=== PATIENT | male | born 1990 | race Caucasian/White ===

== ENCOUNTER 2016-09-19 21:40 | Emergency (ER) | payer OTHER ==
[~2016-09-19 21:40] MED LIST: PERCOCET1 TA1 PO
--- NOTE | 2016-09-19 23:33 | ED ORDER SUMMARY ---
..... Patient: LIZ VERA OrderSheet [facility] VisitID: [id number] [place] [address] 26y, M Registration Date/Time: 09/19/2016 ORDER SHEET Weight: 102.0 kg (stated) Allergies: No Known Drug Allergy GENERAL ORDERS: CBC w Diff Urgent (21:54 09/19/2016 Diane BARRON) (Ack 21:56 Marlen) (22:12 JSanders R.N.) CMP Urgent (21:54 09/19/2016 Diane BARRON) (Ack 21:56 Marlen) (22:12 JSanders R.N.) UA-Culture if indicated Urgent (:54 09/19/2016 Diane BARRON) (Ack 21:56 Marlen) (23:05 JSanders R.N.) Amylase Urgent (21:54 09/19/2016 Diane BARRON) (Ack 21:56 Marlen) (22:12 JSanders R.N.) Lipase Urgent (21:54 09/19/2016 Diane BARRON) (Ack 21:56 Marlen) (22:12 JSanders R.N.) Urine Drug Screen Urgent (21:54 09/19/2016 Diane BARRON) (Ack 21:56 Marlen) (23:05 JSanders R.N.) Ethyl Alcohol Urgent (21:54 09/19/2016 Diane BARRON) (Ack 21:56 Marlen) (22:12 JSanders R.N.) MEDICATION ORDERS: IV FLUIDS: IV NS with Normal Saline 1 Liter, Folic Acid 1 mg/L, Multivitamin Concentrate Intravenous 1 amp/L, Thiamine HCl 100 mg/L: initial bolus 500 mL (1000 mL/hr), then 125 mL/hr for X1 (NOW); Urgent (21:52 09/19/2016 Diane BARRON) (Ack 22:03 JSanders R.N.) (22:22 JSanders R.N.) Zofran IV 4 mg (NOW) (22:49 09/19/2016 Diane BARRON) (Ack 22:49 Bhavana R.N.) (22:54 Robertos R.N.) ORDER SHEET NOTES: [Electronically signed by Valery Denton R.N. (23:59 09/19/2016)] [Electronically signed by Timmy Patel MD (00:13 09/20/2016)] [Electronically locked/signed by Valery Denton R.N. (23:59 09/19/2016)]
--- NOTE | 2016-09-19 23:33 | ED ORDER SUMMARY ---
..... Patient: LIZ VERA OrderSheet [facility] VisitID: [id number] [place] [address] 26y, M Registration Date/Time: 09/19/2016 ORDER SHEET Weight: 102.0 kg (stated) Allergies: No Known Drug Allergy GENERAL ORDERS: CBC w Diff Urgent (21:54 09/19/2016 Diane BARRON) (Ack 21:56 Marlen) (22:12 JSanders R.N.) CMP Urgent (21:54 09/19/2016 Diane BARRON) (Ack 21:56 Marlen) (22:12 JSanders R.N.) UA-Culture if indicated Urgent (:54 09/19/2016 Diane BARRNO) (Ack 21:56 Marlen) (23:05 JSanders R.N.) Amylase Urgent (21:54 09/19/2016 Diane BARRON) (Ack 21:56 Marlen) (22:12 JSanders R.N.) Lipase Urgent (21:54 09/19/2016 Diane BARRON) (Ack 21:56 Marlen) (22:12 JSanders R.N.) Urine Drug Screen Urgent (21:54 09/19/2016 Diane BARRON) (Ack 21:56 Marlen) (23:05 JSanders R.N.) Ethyl Alcohol Urgent (21:54 09/19/2016 Diane BARRON) (Ack 21:56 Marlen) (22:12 JSanders R.N.) MEDICATION ORDERS: IV FLUIDS: IV NS with Normal Saline 1 Liter, Folic Acid 1 mg/L, Multivitamin Concentrate Intravenous 1 amp/L, Thiamine HCl 100 mg/L: initial bolus 500 mL (1000 mL/hr), then 125 mL/hr for X1 (NOW); Urgent (21:52 09/19/2016 Diane BARRON) (Ack 22:03 JSanders R.N.) (22:22 JSanders R.N.) Zofran IV 4 mg (NOW) (22:49 09/19/2016 Diane BARRON) (Ack 22:49 Bhavana R.N.) (22:54 Robertos R.N.) ORDER SHEET NOTES: [Electronically signed by Valery Denton R.N. (23:59 09/19/2016)] [Electronically signed by Timmy Patel MD (00:13 09/20/2016)] [Electronically locked/signed by Valery Denton R.N. (23:59 09/19/2016)]
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
--- NOTE | 2016-09-20 00:13 | ED MED RECONCILIATION SUMMARY ---
Patient: LIZ VERA Medication Reconciliation Report [facility] VisitID: [id number] [address] [place] [address] 26y, M Registration Date/Time: 09/19/2016 Weight: 102.0 kg Height/Length: 66 in. BMI: 36.3 ALLERGIES: No Known Drug Allergy The patient's Home Medications are listed below: NONE. The source(s) of the original Home Medication information: Not obtained. The following Medications were given to the patient in the Emergency Department: IV NS IV Fluids bolus 500 mL over 30 minute(s), then 125 mL/hr with Folic Acid [IVPB] 1 mg, Multivitamin [IVPB] 1 unit dose and Thiamine [IVPB] 100 mg, administered: 09/19/2016 10:16:00 PM Zofran [IVP] IVP 4 mg, administered: 09/19/2016 10:54:00 PM The following Medications were prescribed to the patient: None.
--- NOTE | 2016-09-20 00:13 | ED DISCHARGE INSTRUCTIONS ---
Patient: LIZ VERA General Instructions [facility] VisitID: [id number] [place] [address] 26y, M Registration Date/Time: 09/19/2016 Alcohol intoxication. INSTRUCTIONS No driving or operating machinery. Rest. Drink plenty of fluids. No alcohol. (stay with a sober, responsible adult as discussed.). Warnings: GENERAL WARNINGS: Return or contact your physician immediately if your condition worsens or changes unexpectedly, if not improving as expected, or if other problems arise. Follow-up: Follow up with your doctor as needed. Understanding of the discharge instructions verbalized by patient and family. ADDITIONAL INFORMATION Alcohol Intoxication Alcohol intoxication occurs when you drink alcohol faster than your liver can remove it from your system. Alcohol intoxication affects your judgment and coordination. Very high blood alcohol levels can cause coma, very slow breathing and even . If you drink alcohol every day, this may gradually cause permanent damage to your liver, brain, heart, pancreas and other organs. Alcohol use during may cause permanent damage to the growing baby. Home Care: Do not drink any more alcohol. DO NOT DRIVE until all effects of the alcohol have worn off. Get lots of rest over the next few days. Drink plenty of water and other non-alcoholic liquids. Try to eat regular meals. If you have been drinking heavily on a daily basis, you may go through alcohol withdrawl. This is also called the shakes or DTs. The usual symptoms last 3 to 4 days and may include nervousness, shakiness, nausea, sweating or sleeplessness. During this time, it is best that you stay with family or friends who can help and support you. You can also admit yourself to a residential detox program. If your symptoms are severe, contact your doctor for medicines to help. Follow Up: If alcohol is causing a problem in your life, these and other organizations can help you: Alcoholics Anonymous offers support through a self-help fellowship. There are no dues or fees. See the Yellow Pages and call for time and place of meetings. www.aa.org [employer] offers support to families of alcohol users. 402.949.7989 www.al-anon.org National [place] On Alcoholism And Drug Dependence 771-914-9402 www.ncadd.org There are also inpatient or residential alcohol detox programs. Check the Internet or phonebook Yellow Pages under Drug Abuse & Treatment Centers. Get Prompt Medical Attention if any of the following occur: there) You have been given the following additional information: Alcohol Intoxication No driving or operating machinery. Rest. (Electronically signed by Timmy Patel MD 09/20/2016 0:13)
--- NOTE | 2016-09-20 00:13 | ED DISCHARGE INSTRUCTIONS ---
Patient: LIZ VERA General Instructions [facility] VisitID: [id number] [place] [address] 26y, M Registration Date/Time: 09/19/2016 Alcohol intoxication. INSTRUCTIONS No driving or operating machinery. Rest. Drink plenty of fluids. No alcohol. (stay with a sober, responsible adult as discussed.). Warnings: GENERAL WARNINGS: Return or contact your physician immediately if your condition worsens or changes unexpectedly, if not improving as expected, or if other problems arise. Follow-up: Follow up with your doctor as needed. Understanding of the discharge instructions verbalized by patient and family. ADDITIONAL INFORMATION Alcohol Intoxication Alcohol intoxication occurs when you drink alcohol faster than your liver can remove it from your system. Alcohol intoxication affects your judgment and coordination. Very high blood alcohol levels can cause coma, very slow breathing and even . If you drink alcohol every day, this may gradually cause permanent damage to your liver, brain, heart, pancreas and other organs. Alcohol use during may cause permanent damage to the growing baby. Home Care: Do not drink any more alcohol. DO NOT DRIVE until all effects of the alcohol have worn off. Get lots of rest over the next few days. Drink plenty of water and other non-alcoholic liquids. Try to eat regular meals. If you have been drinking heavily on a daily basis, you may go through alcohol withdrawl. This is also called the shakes or DTs. The usual symptoms last 3 to 4 days and may include nervousness, shakiness, nausea, sweating or sleeplessness. During this time, it is best that you stay with family or friends who can help and support you. You can also admit yourself to a residential detox program. If your symptoms are severe, contact your doctor for medicines to help. Follow Up: If alcohol is causing a problem in your life, these and other organizations can help you: Alcoholics Anonymous offers support through a self-help fellowship. There are no dues or fees. See the Yellow Pages and call for time and place of meetings. www.aa.org [employer] offers support to families of alcohol users. 726.661.1702 www.al-anon.org National [place] On Alcoholism And Drug Dependence 190-726-0056 www.ncadd.org There are also inpatient or residential alcohol detox programs. Check the Internet or phonebook Yellow Pages under Drug Abuse & Treatment Centers. Get Prompt Medical Attention if any of the following occur: there) You have been given the following additional information: Alcohol Intoxication No driving or operating machinery. Rest. (Electronically signed by Timmy Patel MD 09/20/2016 0:13)
--- NOTE | 2016-09-20 00:13 | ED MED RECONCILIATION SUMMARY ---
Patient: LIZ VERA Medication Reconciliation Report [facility] VisitID: [id number] [address] [place] [address] 26y, M Registration Date/Time: 09/19/2016 Weight: 102.0 kg Height/Length: 66 in. BMI: 36.3 ALLERGIES: No Known Drug Allergy The patient's Home Medications are listed below: NONE. The source(s) of the original Home Medication information: Not obtained. The following Medications were given to the patient in the Emergency Department: IV NS IV Fluids bolus 500 mL over 30 minute(s), then 125 mL/hr with Folic Acid [IVPB] 1 mg, Multivitamin [IVPB] 1 unit dose and Thiamine [IVPB] 100 mg, administered: 09/19/2016 10:16:00 PM Zofran [IVP] IVP 4 mg, administered: 09/19/2016 10:54:00 PM The following Medications were prescribed to the patient: None.
--- NOTE | 2016-09-20 00:13 | ED MAR SUMMARY ---
..... Medication Administration Record [facility] [address] [place] [address] Patient: LIZ VERA Visit ID: [id number] 26y, M Weight: 102.0 kg Height/Length: 66 in BMI: 36.3 ALLERGIES: No Known Drug Allergy Start 22:16 09/19/2016 Valery Denton R.N., Stop 23:43 09/19/2016 Valery Denton R.N. Medication Administered: IV NS (SALINE), Dose: IV Fluids over 4 hour(s), With: FOLIC ACID [IVPB] 1 mg; MULTIVITAMIN [IVPB] 1 unit dose; THIAMINE [IVPB] 100 mg, Rate: 125 mL/hr, Bolus: 500 mL over 30 minute(s), Dispensed: 1000 mL bag, Site: #1 right AC. Medication Ordered: IV NS with Normal Saline 1 Liter, Folic Acid 1 mg/L, Multivitamin Concentrate Intravenous 1 amp/L, Thiamine HCl 100 mg/L: initial bolus 500 mL (1000 mL/hr), then 125 mL/hr for X1 (NOW); Urgent. Given 22:54 09/19/2016 Valery Denton R.N. Medication Administered: ZOFRAN [IVP] (ONDANSETRON HCL), Dose: 4 mg IVP over 1 minute(s), Site: #1 right AC. Medication Ordered: Zofran IV 4 mg (NOW).
--- NOTE | 2016-09-20 00:13 | ED MAR SUMMARY ---
..... Medication Administration Record [facility] [address] [place] [address] Patient: LIZ VERA Visit ID: [id number] 26y, M Weight: 102.0 kg Height/Length: 66 in BMI: 36.3 ALLERGIES: No Known Drug Allergy Start 22:16 09/19/2016 Valery Denton R.N., Stop 23:43 09/19/2016 Valery Denton R.N. Medication Administered: IV NS (SALINE), Dose: IV Fluids over 4 hour(s), With: FOLIC ACID [IVPB] 1 mg; MULTIVITAMIN [IVPB] 1 unit dose; THIAMINE [IVPB] 100 mg, Rate: 125 mL/hr, Bolus: 500 mL over 30 minute(s), Dispensed: 1000 mL bag, Site: #1 right AC. Medication Ordered: IV NS with Normal Saline 1 Liter, Folic Acid 1 mg/L, Multivitamin Concentrate Intravenous 1 amp/L, Thiamine HCl 100 mg/L: initial bolus 500 mL (1000 mL/hr), then 125 mL/hr for X1 (NOW); Urgent. Given 22:54 09/19/2016 Valery Denton R.N. Medication Administered: ZOFRAN [IVP] (ONDANSETRON HCL), Dose: 4 mg IVP over 1 minute(s), Site: #1 right AC. Medication Ordered: Zofran IV 4 mg (NOW).
== END 2016-09-19 23:46 | disposition home or self-care (01) ==
LOC: ED SRH 21:40
DX: F10.129 Alcohol abuse with intoxication, unspecified (principal); Y90.5 Blood alcohol level of 100-119 mg/100 ml
CPT/HCPCS: 90004; 90100; 92010; 92235; 92530; 92760; 92761; 92762; 92763; 92764; 92765; 92766; 92767; 95059